=== PATIENT | female | born 1980 | race Caucasian/White ===

== ENCOUNTER → 2019-05-27 12:07 | Outpatient (CLI) | payer OTHER, SELFPAY ==
--- NOTE | 2019-05-27 | DI.MG.S_ITS ---
BILATERAL DIGITAL DIAGNOSTIC MAMMOGRAM 3D/2D: 05/27/2019 CLINICAL: Baseline exam. Right Breast lump. No prior exams were available for comparison. The tissue of both breasts is heterogeneously dense. This may lower the sensitivity of mammography. No significant masses, calcifications, or other findings are seen in either breast. IMPRESSION: INCOMPLETE: NEEDS ADDITIONAL IMAGING EVALUATION There is no abnormality seen in the right breast to correspond with the palpable abnormality in the upper outer quadrant, however, ultrasound is recommended. This exam was interpreted at Station ID: [id number]. NOTE: For mammograms, a report in lay terms will be sent to the patient. Approximately 15% of breast malignancies will not be visualized mammographically. In the management of a palpable breast mass, a negative mammogram must not discourage biopsy of a clinically suspicious lesion. Electronically Signed By: Steven [email or web address]:05/27/2019 13:29:11 ACR BI-RADS Category 0: Incomplete [id number]
--- NOTE | 2019-05-27 | DI.US.S_ITS ---
LIMITED ULTRASOUND OF RIGHT BREAST: 05/27/2019 CLINICAL: Palpable right breast lump. [facility] and real-time ultrasound of the right breast 10 o'clock region were performed on the areas of interest. No discrete solid mass lesion identified in the area of palpable abnormality. An incidental small anechoic well circumscribed oval cyst is noted in the adjacent soft tissue measuring up to 0.4 x 0.4 x 0.4 cm. There is posterior acoustic enhancement. No internal vascularity on color Doppler interrotation. IMPRESSION: BENIGN There is no sonographic evidence of malignancy. There is no abnormality seen in the right breast to correspond with the palpable abnormality, however, clinical followup is recommended. An incidental benign appearing simple cyst is noted adjacent to the area of palpable abnormality. A 1 year screening mammogram is recommended. This exam was interpreted at Station ID: [id number]. Electronically Signed By: Steven Singh M.D. ddp/:05/27/2019 14:10:52 letter sent: Clinical Evaluation Ultrasound BI-RADS: 2 Benign
== END ==
PROVIDERS: Referring Provider Family Medicine; Visit Provider Family Medicine
DX: R92.8 Other abnormal and inconclusive findings on diagnostic imaging of breast (principal); N63.10 Unspecified lump in the right breast, unspecified quadrant; N60.01 Solitary cyst of right breast
CPT/HCPCS: 76642; 77066; G0279

== ENCOUNTER → 2022-12-11 08:53 | Outpatient (CLI) | payer OTHER, SELFPAY ==
[2022-12-11 19:48] LABS: Add Manual Diff / Slide Review NO; Basophils Absolute Auto 100 /uL (0-100); Basophils Percent Auto 0.8 % (0-2); Eosinophils Absolute Auto 400 /uL (0-450); Eosinophils Percent Auto 4.4 % (2-4); Hemoglobin 15.8 g/dL (12.0-16.0); Lymphocytes Absolute Auto 2400 /uL (1100-4500); Lymphocytes Percent Auto 24.5 % (25-40); Mean Corpuscular HGB Conc 35.1 % (30-36); Mean Corpuscular Hemoglobin 33.2 PG (26-34); Mean Corpuscular Volume 94.5 fL (80-100); Monocytes Absolute Auto 600 /uL (0-900); Monocytes Percent Auto 6.1 % (3-14); Neutrophils Absolute Auto 6400 /uL (1500-7000); Neutrophils Percent Auto 64.2 % (50-75); Platelet Count 273 X10^3/uL (150-400); Red Blood Cell Count 4.76 X10^6/uL (4.0-5.2); Red Cell Distribution Width 13.9 % (11.6-14.8); White Blood Cell Count 9.9 X10^3/uL (4.5-11.0)
[2022-12-11 19:49] LABS: Alanine Aminotransferase 29 IU/L (<35); Albumin 4.1 g/dL (3.5-5.0); Albumin Globulin Ratio 1.7 (1.0-2.8); Alkaline Phosphatase 81 U/L (38-126); Aspartate Aminotransferase 29 IU/L (14-36); BUN Creatinine Ratio 21.3 (6-22); Bilirubin Total 0.4 mg/dL (0.2-1.3); Blood Urea Nitrogen 10 mg/dL (7-17); Calcium 9.2 mg/dL (8.4-10.2); Carbon Dioxide 20 mmol/L (22-32); Chloride 109 mmol/L (98-107); Cholesterol 256 mg/dL (140-199); Estimated Glomerular Filt Rate > 60 mL/min (>60); Globulin 2.4 g/dL (1.7-4.1); Glucose 103 mg/dL (70-100); HDL Cholesterol 65 mg/dL (40-60); HEMOLYSIS 24 (0-50); LDL Cholesterol Calculated 176 mg/dL (<100); Potassium 4.4 mmol/L (3.4-5.1); Sodium 137 mmol/L (137-145); Total Protein 6.5 g/dL (6.3-8.2); Triglycerides 74 mg/dL (35-150)
== END ==
PROVIDERS: PCP Physician Assistant Medical; Visit Provider Physician Assistant
DX: F17.200 Nicotine dependence, unspecified, uncomplicated (principal); Z13.220 Encounter for screening for lipoid disorders
CPT/HCPCS: 80053; 80061; 85025

== ENCOUNTER → 2022-12-28 10:50 | Outpatient (CLI) | payer OTHER, SELFPAY ==
--- NOTE | 2022-12-28 | DI.CT.S_ITS ---
PROCEDURE: CT LUNG LOW DOSE SCREENING INDICATIONS: Low dose annual screening; tobacco use TECHNIQUE: Noncontrast 2.0-2.5 mm thick sections acquired from the pulmonary apices to the posterior costophrenic angles. 7 mm thick axial MIP, and 5 mm coronal and sagittal reformats were then acquired. A low radiation dose technique was utilized. COMPARISON: None. FINDINGS: Image quality: Good Lungs and pleura: No focal consolidation. Mild scattered scarring and atelectasis. No drainable pleural effusions. Emphysematous changes and mild bronchial wall thickening. Micro nodules and granulomas are best seen on maximum intensity projection images, series 6, image for example 90 on the right, 110 on the right, 69 on the right, 105 on the left. None of these measures 6 millimeters or over. Mediastinum, heart, and esophagus: No hiatal hernia. Normal heart size. No pathologic lymph nodes by size criteria. Chest wall and thyroid: Dense, slightly asymmetric breast tissue, correlate with mammogram. Upper abdomen: No gross abnormality on these low-dose noncontrast images. Suspected left lobe liver cyst is partially evaluated. Bones: No acute or suspicious osseous finding. Pectus excavatum, with rightward tilt of the sternum. There are mild degenerative changes of the spine. IMPRESSION: Lung RADS 2: Continue annual screening. Other findings as above Dictated by: Raymundo Cox M.D. on 12/28/2022 at 11:24 Approved by: Raymundo Cox M.D. on 12/28/2022 at 11:28
== END ==
PROVIDERS: PCP Physician Assistant Medical; Referring Provider Physician Assistant; Visit Provider Physician Assistant
DX: Z12.2 Encounter for screening for malignant neoplasm of respiratory organs (principal); R91.8 Other nonspecific abnormal finding of lung field; J44.9 Chronic obstructive pulmonary disease, unspecified; F17.200 Nicotine dependence, unspecified, uncomplicated
CPT/HCPCS: 71271

== ENCOUNTER → 2024-03-06 12:40 | Outpatient (CLI) | payer OTHER, SELFPAY ==
--- NOTE | 2024-03-06 12:42 | DI.CT.S_ITS ---
PROCEDURE: CT CHEST WO CON INDICATIONS: follow up lung nodule TECHNIQUE: Noncontrast 5 mm thick sections acquired from the pulmonary apices to the posterior costophrenic angles. 1 mm lung window, 5 mm thick coronal and sagittal and 7 mm axial MIP reformats were then acquired. For radiation dose reduction, the following was used: automated exposure control, adjustment of mA and/or kV according to patient size. COMPARISON: [facility], CT, CT LUNG LOW DOSE SCREENING, 12/28/2022, 10:56. [facility] ([facility]), CR, XR CHEST 2V, 01/01/2024, 8:32. FINDINGS: Image quality: Diagnostic. Lower Neck: No enlarged lymph nodes. Thyroid: No thyroid nodules which require sonographic follow up, per consensus guidelines. Axillae: No enlarged lymph nodes. Chest Wall: Unremarkable. Bones: Unremarkable. Lungs and Pleura: No pneumothorax or pleural effusions. No consolidation or definite new or malignant-appearing nodules as was previously the case there are scattered sub 5 mm nodules within the lungs bilaterally, likely representing old granulomatous disease. Three index nodules previously evaluated 12/28/22 are again seen and have not changed in size or morphology. These are currently located on the right on series 5 image 68, 115, and 91. On the left an additional index nodule is also stable seen on series 5, image 109. Heart: Heart size is normal. No pericardial effusion. Thoracic Vessels: The aorta and pulmonary arteries demonstrate normal size. Mediastinum and Roro: No enlarged lymph nodes. Esophagus: No wall thickening. No hiatal hernia. Upper Abdomen: Visualized upper abdomen solid organs and bowel loops appear normal. IMPRESSION: No malignant-appearing pulmonary nodule found. Multiple sub 5 mm nodules are present bilaterally none of which have malignant-appearing margination or enlargement over time from December 2022. Old granulomatous disease is the presumed cause. Lung rads category 2, follow-up noncontrast low-dose screening CT for early detection of lung carcinoma is recommended assuming the patient meets screening criteria. Dictated by: Mark Cortez M.D. on 03/06/2024 at 14:25 Approved by: Mark Cortez M.D. on 03/06/2024 at 14:39
== END ==
LOC: CT 12:41
PROVIDERS: PCP Family Medicine; Referring Provider Family Medicine; Visit Provider Family Medicine
DX: R91.8 Other nonspecific abnormal finding of lung field (principal); J44.9 Chronic obstructive pulmonary disease, unspecified; R91.1 Solitary pulmonary nodule
CPT/HCPCS: 71250